=== PATIENT | female | born 1935 | race Caucasian/White ===

== ENCOUNTER 2022-08-12 13:12 | Emergency (ER) | payer OTHER ==
[~2022-08-12] VITALS: Ht 180.3 cm; Wt 88.1 kg
[2022-08-12] MEDS ORDERED: IBUPROFEN 400 MG TAB PO ONE (14:00)
[2022-08-12] MEDS ORDERED: BROMPHENIR-PSE118 ML PO (14:26)
[2022-08-12] MEDS ORDERED: ZITHROMAX250 MG PO (14:26)
[2022-08-12] MEDS ORDERED: DEXAMETHASONE SOD PHOS INJ 4 MG/ML SDV ONE (14:30)
[2022-08-12] MEDS ORDERED: IBUPROFEN 400 MG TAB ONE (14:34)
[2022-08-12] MEDS ORDERED: DEXAMETHASONE PHOS 4MG/ML 5ML MULTIDOSE VIAL IV ONE (15:00)
[2022-08-12] MEDS ORDERED: PAXLOVID 300-11 EACH PO (16:27)
== END 2022-08-12 14:35 | disposition home or self-care (01) ==
LOC: FSED 13:41
DX: U07.1 COVID-19 (principal); J20.9 Acute bronchitis, unspecified; I10 Essential (primary) hypertension; Z88.8 Allergy status to other drugs, medicaments and biological substances
CPT/HCPCS: 83518; 87400; 96372; 99283; J1100

== ENCOUNTER 2022-08-16 14:33 | Emergency (ER) | payer OTHER ==
[~2022-08-16] VITALS: Ht 180.3 cm; Wt 88.0 kg
[~2022-08-16 14:33] MED LIST: BROMPHENIR-PSE118 ML PO; PAXLOVID 300-11 EACH PO; ZITHROMAX250 MG PO
[2022-08-16] MEDS ORDERED: MECLIZINE HCL12.5 MG PO (15:25)
[2022-08-16] MEDS ORDERED: DEBROX15 ML EACH EAR (15:25)
== END 2022-08-16 15:42 | disposition home or self-care (01) ==
LOC: FSED 14:42
DX: R42 Dizziness and giddiness (principal); U07.1 COVID-19; H61.22 Impacted cerumen, left ear; I10 Essential (primary) hypertension
CPT/HCPCS: 70450; 99283